=== PATIENT | female | born 1950 | race Caucasian/White ===

== ENCOUNTER 2018-08-16 14:35 | Emergency (ER) | payer MEDICARE ==
[2018-08-16] MEDS ORDERED: methylPREDNISolone Sod Succ/PF 125 MG/2 ML VIAL ONE (14:59)
[2018-08-16] MEDS ORDERED: Aspirin Chewable 81 MG TAB ONE (14:59)
--- NOTE | 2018-08-16 15:03 | RAD ---
FRONTAL VIEW CHEST: 08/16/18 COMPARISON: 12/16/08. INDICATION: Cholelithiasis. Presurgical evaluation. FINDINGS: The cardiac silhouette is stable. There is mild hazy density at the inferior left chest. Lungs are hy perinflated. Chest is otherwise similar appearing. IMPRESSION: 1. COPD. 2. Mild haziness at the inferior left chest could relate to volume loss or scar. POS: C
[2018-08-16] MEDS ORDERED: Albuterol Sulfate 2.5 mg/3 ml Neb ONE (15:28)
[2018-08-16 15:43] LABS: ALT (SGPT) 16 U/L (8-55); AST (SGOT) 15 U/L (5-34); Albumin 4.1 g/dL (3.4-4.8); Alkaline Phosphatase 118 U/L (40-150); Anion Gap 13 mmol/L (10-20); BUN (Urea Nitrogen) 19 mg/dL (9.8-20.1); Bilirubin, Total 0.5 mg/dL (0.2-1.2); Calc. Creatinine Clearance 0 mL/min (70-130); Calcium 9.7 mg/dL (7.8-10.44); Carbon Dioxide 28 mmol/L (23-31); Chloride 103 mmol/L (98-107); Estimated GFR-MDRD 79; Globulin 2.7 g/dL (2.4-3.5); Glucose 91 mg/dL (80-115); Potassium 3.4 mmol/L (3.5-5.1); Protein, Total 6.8 g/dL (6.0-8.3); Sodium 141 mmol/L (136-145)
[2018-08-16 15:45] LABS: #Basophils 0.1 thou/uL (0.0-0.2); #Lymphocytes 2.6 thou/uL (1.20-3.40); #Monocytes 1.2 thou/uL (0.11-0.59); #Neutrophils 11.1 thou/uL (1.40-6.50); %Basophils 0.7 % (0.0-1.0); %Eosinophils 0.2 % (0.0-10.0); %Monocytes 8.1 % (0.0-10.0); Hemoglobin 18.7 g/dL (12.0-16.0); Mean Corpuscular HGB CONC 31.2 g/dL (32.0-36.0); Mean Corpuscular Hemoglobin 29.9 pg (27.0-31.0); Mean Corpuscular Volume 95.9 fL (78.0-98.0); Mean Platelet Volume 6.2 fL (7.4-10.4); Platelet Count 282 thou/uL (130-400); RBC Distribution Width 13.4 % (11.5-14.5); Red Blood Cell (RBC) Count 6.24 mill/uL (4.20-5.40)
== END 2018-08-16 17:15 | disposition left against medical advice (07) ==
LOC: NAV ERS 14:35
DX: J44.1 Chronic obstructive pulmonary disease with (acute) exacerbation (principal); I10 Essential (primary) hypertension; I48.91 Unspecified atrial fibrillation; F17.210 Nicotine dependence, cigarettes, uncomplicated; Z79.899 Other long term (current) drug therapy; Z79.51 Long term (current) use of inhaled steroids
CPT/HCPCS: 71045; 80053; 83880; 84484; 85025; 85379; 93005; 94640; 94760; 96374; J2930; J7611; J7620

== ENCOUNTER 2020-02-04 11:49 | Outpatient (CLI) | payer MEDICARE, MEDICAID ==
--- NOTE | 2020-02-04 13:49 | RAD ---
THORACIC SPINE THREE VIEWS: 02/04/20 HISTORY: Severe back pain. FINDINGS/IMPRESSION: Multilevel degenerative changes are present. No acute fracture, subluxation or bony destruction ident ified. POS: AH
== END 2020-02-04 11:50 | disposition home or self-care (01) ==
LOC: NAV RAD 11:49
PROVIDERS: ATTEND Family Medicine
DX: R07.81 Pleurodynia (principal); M47.814 Spondylosis without myelopathy or radiculopathy, thoracic region
CPT/HCPCS: 72072